=== PATIENT | male | born 1990 | race Caucasian/White ===

== ENCOUNTER 2016-10-25 16:03 | Emergency (ER) | payer OTHER ==
[~2016-10-25] VITALS: Ht 170.2 cm; Wt 61.2 kg
[2016-10-25 16:10] VITALS: BP 100/60
[2016-10-25] MEDS ORDERED: KETOROLAC TROMETHAMINE 60 MG/2 ML SYRINGE. IM ONE (16:30)
--- NOTE | 2016-10-25 16:51 | RAD ---
Lumbar spine radiographs History: Low back pain for one day after lifting 50 pound bag. Comparison: 04/05/2009. Findings: AP and lateral views of the lumbar spine, 3 images. 5 lumbar type vertebral bodies are present. There is mild levoconvex curvature of the lower thoracic and lumbar spine. No acute fracture or acute malalignment is identified. Right L1 transverse process demonstrates ununited apophysis versus old, ununited fracture, unchanged. Impression: No acute osseous traumatic injury identified.
--- NOTE | 2016-10-25 17:01 | PHYS DOC ---
Past Medical History Past Medical History: No Pertinent History Past Surgical History: Other Additional Past Surgical Histo: WISDOM TEETH Additional Information: 1 PPD SMOKER Alcohol Use: Occasionally Drug Use: Marijuana Adult General Chief Complaint Chief Complaint: LOWER BACK PAIN OR INJURY HPI HPI Patient is a 26 year old male who presents with low back pain after lifting a 50-pound container of flour today at work. The pain radiates to the right buttock. He denies weakness or numbness in the legs. He has not had incontinence of bowel or bladder or saddle anesthesia. He reports nausea without vomiting or abdominal pain. He denies urinary symptoms. He has had similar symptoms in the past, about 4 times a year, after bending or lifting activities. The pain usually resolves with heat and rest. The patient continued to work today and was unable to take any pain medication or apply heat. He states that the pain has grown gradually worse throughout the day. His PCP is Dr. Treadwell. Review of Systems Review of Systems Constitutional: Denies fever or chills. [] GI: Denies abdominal pain, vomiting. Reports nausea. : Denies dysuria, hematuria or urinary frequency. [] Musculoskeletal: Denies joint pain. Reports low back pain. Integument: Denies rash or skin lesions. [] Neurologic: Denies headache, focal weakness or sensory changes. Denies incontinence or saddle anesthesia. All systems reviewed and negative unless otherwise stated in the HPI. Current Medications Current Medications Current Medications Medications (Trade) Dose Ordered Sig/[facility] Start Time Stop Time Status Last Admin Dose Admin Ketorolac Tromethamine (Toradol Im) 60 mg 1X ONCE 10/25/16 16:30 10/25/16 16:31 DC Allergies Allergies Allergies Coded Allergies Type Severity Reaction Last Updated Verified No Known Drug Allergies 10/25/16 No Physical Exam Physical Exam Constitutional: Well developed, well nourished, no acute distress, non-toxic appearance. [] HENT: Normocephalic, atraumatic, oropharynx moist. [] Eyes: PERRLA, EOMI, conjunctiva normal, no discharge. [] Neck: Normal range of motion, no tenderness, supple, no stridor. [] Cardiovascular: Heart rate regular rhythm, no murmur. [] Lungs & Thorax: Bilateral breath sounds clear to auscultation without wheezes, rales, or rhonchi. [] Abdomen: Bowel sounds normal, soft, no tenderness, no masses, no pulsatile masses. [] Skin: Warm, dry, no erythema, no rash. [] Back: Lumbar midline and bilateral paraspinal tenderness, no CVA tenderness. [] Extremities: No tenderness, ROM intact, no edema. 2+ DP pulses bilaterally. Light touch sensation intact distally and equal bilaterally. Neurologic: Alert and oriented X 3, normal motor function, normal sensory function, no focal deficits noted. [] Psychologic: Affect normal, judgement normal, mood normal. [] Current Patient Data Vital Signs Vital Signs Date Time Temp Pulse Resp B/P Pulse Ox O2 Delivery O2 Flow Rate FiO2 10/25/16 16:10 98.4 76 18 96 Room Air 98.4 EKG EKG [] Radiology/Procedures Radiology/Procedures REASON: low back pain PROCEDURE: LUMBAR SPINE 2-3V Lumbar spine radiographs History: Low back pain for one day after lifting 50 pound bag. Comparison: 04/05/2009. Findings: AP and lateral views of the lumbar spine, 3 images. 5 lumbar type vertebral bodies are present. There is mild levoconvex curvature of the lower thoracic and lumbar spine. No acute fracture or acute malalignment is identified. Right L1 transverse process demonstrates ununited apophysis versus old, ununited fracture, unchanged. Impression: No acute osseous traumatic injury identified. Course & Med Decision Making Course & Med Decision Making Pertinent Labs and Imaging studies reviewed. (See chart for details) [] Dragon Disclaimer Dragon Disclaimer This electronic medical record was generated, in whole or in part, using a voice recognition dictation system. Departure Departure Impression: Primary Impression: Low back pain Disposition: 01 HOME, SELF-CARE Condition: STABLE Patient Instructions: Back Pain, Adult, [id number] Additional Instructions: Your xray does not show any acute changes. Please take the prescribed medications as directed. Do not drive or operate heavy machinery while taking these medications. Please apply heat, practice gentle stretching, light massage, and avoid bending or lifting. Please follow up with your primary care provider if your symptoms continue. Return to the emergency department if you have loss of bowel or bladder control , numbness between your legs, or other new or concerning symptoms. Scripts Tramadol Hcl (Ultram)50 Mg [id number] Mg PO Q6H PRN PAIN #20 TAB Prov:MIRI SNIDER 10/25/16 Methocarbamol (Robaxin)500 Mg [id number] Mg PO QID #20 TAB Prov:MIRI SNIDER 10/25/16 Problem Qualifiers Primary Impression: Low back pain Chronicity: acute Back pain laterality: bilateral Sciatica presence: with sciatica Sciatica laterality: sciatica of right side Qualified Code: M54.41 - Lumbago with sciatica, right side MIRI SNIDER Oct 25, 2016 17:01
[2016-10-25] MEDS ORDERED: METH-37 PO (17:06)
[2016-10-25] MEDS ORDERED: TRAM-29 PO (17:06)
== END 2016-10-25 17:28 | disposition home or self-care (01) ==
LOC: ER 16:03
DX: M54.5 Low back pain (principal); F17.200 Nicotine dependence, unspecified, uncomplicated; F12.10 Cannabis abuse, uncomplicated
CPT/HCPCS: 72100; 96372; 99284; J1885

== ENCOUNTER 2017-07-28 10:36 | Emergency (ER) | payer BC ==
[~2017-07-28 10:36] MED LIST: METH-37 PO; TRAM-48 PO
--- NOTE | 2017-07-28 12:09 | PHYS DOC ---
Past Medical History Past Medical History: No Pertinent History Past Surgical History: Other Additional Past Surgical Histo: WISDOM TEETH Alcohol Use: Occasionally Drug Use: Marijuana Adult General Chief Complaint Chief Complaint: ABDOMINAL PAIN HPI HPI Patient is a 27 year old male presents to the emergency department stating clock this morning he developed generalized abdominal pain and discomfort. He states that he started having nausea vomiting and diarrhea. He states that he has vomited twice and has had 2 diarrhea stools. He denies blood being in either. Patient states that this has happened approximately 2 weeks ago when which she was diaphoretic and passed out at the same time. Patient denies taking any medications for pain or discomfort. Patient states pain is more generalized on the left side of the abdomen. His any history of Crohn's disease , diverticulitis, diverticulosis. Review of Systems Review of Systems Constitutional: Denies fever or chills [] Eyes: Denies change in visual acuity, redness, or eye pain [] HENT: Denies nasal congestion or sore throat [] Respiratory: Denies cough or shortness of breath [] Cardiovascular: No additional information not addressed in HPI [] GI: abdominal pain, nausea, vomiting, and diarrhea : Denies dysuria or hematuria [] Musculoskeletal: Denies back pain or joint pain [] Integument: Denies rash or skin lesions [] Neurologic: Denies headache, focal weakness or sensory changes [] Endocrine: Denies polyuria or polydipsia [] Current Medications Current Medications Current Medications Medications (Trade) Dose Ordered Sig/[facility] Start Time Stop Time Status Last Admin Dose Admin Fentanyl Citrate (Fentanyl 2ml Vial) 25 mcg PRN Q15MIN PRN 07/28/17 12:15 07/29/17 12:14 07/28/17 12:24 25 MCG Iohexol (Omnipaque 240 Mg/ml) 50 ml 1X ONCE 07/28/17 12:15 07/28/17 12:16 DC 07/28/17 12:15 50 ML Iohexol (Omnipaque 300 Mg/ml) 75 ml 1X ONCE 07/28/17 12:15 07/28/17 12:16 DC 07/28/17 13:17 75 ML Ondansetron HCl (Zofran) 4 mg 1X ONCE 07/28/17 12:15 07/28/17 12:16 DC 07/28/17 12:23 4 MG Sodium Chloride 1,000 ml @ 1,000 mls/hr 1X ONCE 07/28/17 12:15 07/28/17 13:14 DC 07/28/17 12:15 1,000 MLS/HR Allergies Allergies Allergies Coded Allergies Type Severity Reaction Last Updated Verified Penicillins Allergy Unknown 07/28/17 Yes Physical Exam Physical Exam Constitutional: Well developed, well nourished, no acute distress, non-toxic appearance. [] HENT: Normocephalic, atraumatic, bilateral external ears normal, oropharynx moist, no oral exudates, nose normal. [] Eyes: PERRLA, EOMI, conjunctiva normal, no discharge. [] Neck: Normal range of motion, no tenderness, supple, no stridor. [] Cardiovascular:Heart rate regular rhythm, no murmur [] Lungs & Thorax: Bilateral breath sounds clear to auscultation [] Abdomen: Bowel sounds hypoactive, soft, generalized tenderness, no masses, no pulsatile masses. [] Skin: Warm, dry, no erythema, no rash. [] Back: No tenderness Extremities: No tenderness, no cyanosis, no clubbing, ROM intact, no edema. [] Neurologic: Alert and oriented X 3, normal motor function, normal sensory function, no focal deficits noted. [] Psychologic: Affect normal, judgement normal, mood normal. [] Current Patient Data Vital Signs Vital Signs Date Time Temp Pulse Resp B/P (MAP) Pulse Ox O2 Delivery O2 Flow Rate FiO2 07/28/17 12:11 52 98/67 (77) 100 Room Air 07/28/17 11:00 97.0 18 97.0 Lab Values Laboratory Tests Test 07/28/17 11:10 07/28/17 13:10 White Blood Count 5.6 x10^3/uL (4.0-11.0) Red Blood Count 5.13 x10^6/uL (4.30-5.70) Hemoglobin 16.4 g/dL (13.0-17.5) Hematocrit 48.0 % (39.0-53.0) Mean Corpuscular Volume 93 fL (79-100) Mean Corpuscular Hemoglobin 32 pg (25-35) Mean Corpuscular Hemoglobin Concent 34 g/dL (31-37) Red Cell Distribution Width 13.2 % (11.5-14.5) Platelet Count 176 x10^3/uL (140-400) Neutrophils (%) (Auto) 64 % (31-73) Lymphocytes (%) (Auto) 21 % (24-48) L Monocytes (%) (Auto) 12 % (0-9) H Eosinophils (%) (Auto) 3 % (0-3) Basophils (%) (Auto) 1 % (0-3) Neutrophils # (Auto) 3.6 x10^3uL (1.8-7.7) Lymphocytes # (Auto) 1.2 x10^3/uL (1.0-4.8) Monocytes # (Auto) 0.6 x10^3/uL (0.0-1.1) Eosinophils # (Auto) 0.2 x10^3/uL (0.0-0.7) Basophils # (Auto) 0.0 x10^3/uL (0.0-0.2) Sodium Level 141 mmol/L (136-145) Potassium Level 4.4 mmol/L (3.5-5.1) Chloride Level 105 mmol/L (98-107) Carbon Dioxide Level 30 mmol/L (21-32) Anion Gap 6 (6-14) Blood Urea Nitrogen 11 mg/dL (8-26) Creatinine 1.0 mg/dL (0.7-1.3) Estimated GFR (Cockcroft-Gault) 91.0 BUN/Creatinine Ratio 11 (6-20) Glucose Level 97 mg/dL (70-99) Calcium Level 9.0 mg/dL (8.5-10.1) Total Bilirubin 0.3 mg/dL (0.2-1.0) Aspartate Amino Transferase (AST) 15 U/L (15-37) Alanine Aminotransferase (ALT) 19 U/L (16-63) Alkaline Phosphatase 68 U/L (46-116) Total Protein 7.0 g/dL (6.4-8.2) Albumin 4.0 g/dL (3.4-5.0) Albumin/Globulin Ratio 1.3 (1.0-1.7) Urine Color Yellow Urine Clarity Clear Urine pH 5.5 Urine Specific [place] 1.010 Urine Protein Negative mg/dL (NEG-TRACE) Urine Glucose (UA) Negative mg/dL (NEG) Urine Ketones (Stick) Negative mg/dL (NEG) Urine Blood Negative (NEG) Urine Nitrite Negative (NEG) Urine Bilirubin Negative (NEG) Urine Urobilinogen Dipstick 0.2 mg/dL (0.2 mg/dL) Urine Leukocyte Esterase Negative (NEG) Urine RBC 0 /HPF (0-2) Urine WBC 0 /HPF (0-4) Urine Squamous Epithelial Cells Occ /LPF Urine Bacteria 0 /HPF (0-FEW) Urine Mucus Slight /LPF Urine Opiates Screen Neg (NEG) Urine Methadone Screen Neg (NEG) Urine Barbiturates Neg (NEG) Urine Phencyclidine Screen Neg (NEG) Urine Amphetamine/Methamphetamine Neg (NEG) Urine Benzodiazepines Screen Neg (NEG) Urine Cocaine Screen Neg (NEG) Urine Cannabinoids Screen Pos (NEG) Urine Ethyl Alcohol Neg (NEG) Laboratory Tests 07/28/17 11:10 Laboratory Tests 07/28/17 11:10 EKG EKG [] Radiology/Procedures Radiology/Procedures [][facility] [address] [place] [address] IMAGING REPORT Signed PATIENT: MICHELLE KEITH ACCOUNT: [id number] : 1990 LOCATION: ER AGE: 27 SEX: M EXAM STATUS: REG ER ORD. PHYSICIAN: MARIO ANSARI APRN REASON: abdominal pain with vomiting and diarrhea PROCEDURE: CT ABD PELV W/ORAL&IV CONTRAST Indication: Abdominal pain, vomiting and diarrhea. Technique: Axial images and coronal and sagittal reformatted images are provided. Oral contrast and 75 mL of intravenous Omnipaque 300 was administered without complication. No comparison is available. One or more of the following individualized dose reduction techniques were utilized for this examination: 1. Automated exposure control 2. Adjustment of the mA and/or kV according to patient size 3. Use of iterative reconstruction technique Findings: There is dependent atelectasis. There is no pleural effusion. The heart is not enlarged. Liver, gallbladder, spleen, pancreas, and adrenals are unremarkable. Kidneys are symmetrically perfused. Aorta is normal caliber. There is no small bowel obstruction or mural thickening. Small amount of contrast in the esophagus suggests reflux. Contrast does not reach the colon. The appendix probably is visualized and air-filled, normal in appearance. There is apparent mural thickening in the descending colon, mild, without any evidence of free air or abscess. Bladder is only mildly distended and is grossly unremarkable. Calcified phleboliths are unremarkable. Bony structures are intact. Impression: 1. Mural thickening suspected in the descending colon, likely a mild colitis. DICTATED and SIGNED BY: GUERO JOHNSON MD DATE: 07/28/17 1333 CC: MARIO ANSARI APRN; GEORGES MESSER MD; NON,STAFF ~ [facility] [address] [place] [address] IMAGING REPORT Signed PATIENT: MICHELLE KEITH ACCOUNT: [id number] : 1990 LOCATION: ER AGE: 27 SEX: M EXAM STATUS: REG ER ORD. PHYSICIAN: MARIO ANSARI APRN REASON: abdominal pain with nausea and vomiting,pt states pain worse lt. side. PROCEDURE: ACUTE ABDOMEN SERIES Indication: Abdominal pain beginning this morning. Nausea and vomiting. Technique: Abdominal series with PA chest radiograph contains 3 images. Comparison chest radiograph is from December 14, 2014. Findings: The lungs are clear. There is no pleural effusion. The heart is not enlarged. Leads overlie the patient. There is no free air. There is no dilated bowel loop or air-fluid level. There is gas in the colon. There are calcified phleboliths in the pelvis. Impression: 1. Nonobstructive bowel gas pattern. 2. No acute thoracic findings. DICTATED and SIGNED BY: GUERO JOHNSON MD DATE: 07/28/17 1216 CC: MARIO ANSARI APRN; GEORGES MESSER MD; NON,STAFF ~ Course & Med Decision Making Course & Med Decision Making Pertinent Labs and Imaging studies reviewed. (See chart for details) Patient's CBC, CMP are within normal limits. CT scan identified colitis. Patient will be discharged home with recommendations for clear liquid diet for the next 24 hours. He'll be provided with a prescription for Zofran and Bentyl for pain and discomfort. Recommended following up with primary care physician in next 3-5 days. Signs and symptoms to return back to emergency department as been provided. All questions and concerns been answered at patient's bedside. Patient agrees with discharge instructions, treatment regimens and follow-up recommendations. [] Dragon Disclaimer Dragon Disclaimer This electronic medical record was generated, in whole or in part, using a voice recognition dictation system. Departure Departure Impression: Primary Impression: Colitis Disposition: 01 HOME, SELF-CARE Condition: STABLE Referrals: GEORGES MESSER MD (PCP) Patient Instructions: Clear Liquid Diet, [id number], Colitis Additional Instructions: Activity as tolerated. Clear liquid diet for the next 24 hours. Zofran for nausea vomiting. Bentyl for abdominal pain and discomfort. Follow-up to primary care physician in the next 3-5 days. Return back to emergency prior signs symptoms of become worse. Scripts Dicyclomine Hcl (BENTYL) 10 Mg Capsule 1 CAP PO TID Y for PAIN, #30 CAP Prov: MARIO ANSARI APRN 07/28/17 Ondansetron (ZOFRAN ODT) 4 Mg Tab.rapdis 1 TAB SL Q8HRS, #10 TAB Prov: MARIO ANSARI APRN 07/28/17 MARIO ANSARI APRN Jul 28, 2017 12:09
[2017-07-28 12:11] VITALS: BP 98/67
[2017-07-28] MEDS ORDERED: IOHEXOL 240 MG/ML 50ML VIAL. PO ONE (12:15)
[2017-07-28] MEDS ORDERED: IOHEXOL 300 MG/ML 75 ML VIAL IV ONE (12:15)
[2017-07-28] MEDS ORDERED: fentaNYL PF VIAL 100 MCG/2 ML VIAL IV PRN (12:15)
[2017-07-28] MEDS ORDERED: IV NORMAL SALINE 1000ML BAG 1,000 ML IV ONE (12:15)
[2017-07-28] MEDS ORDERED: ONDANSETRON PF 4 MG/2 ML VIAL. IV ONE (12:15)
[2017-07-28 12:16] LABS: BASO % 1 % (0-3); EOS % 3 % (0-3); HEMOGLOBIN 16.4 g/dL (13.0-17.5); LYMPH # 1.2 x10^3/uL (1.0-4.8); LYMPH % 21 % (24-48); MEAN CORPUSCULAR HEMOGLOBIN 32 pg (25-35); MEAN CORPUSCULAR HGB CONC 34 g/dL (31-37); MEAN CORPUSCULAR VOLUME 93 fL (79-100); MONO % 12 % (0-9); NEUT % 64 % (31-73); PLATELET COUNT 176 x10^3/uL (140-400); RED BLOOD COUNT 5.13 x10^6/uL (4.30-5.70); RED CELL DISTRIBUTION WIDTH 13.2 % (11.5-14.5); WHITE BLOOD COUNT 5.6 x10^3/uL (4.0-11.0)
--- NOTE | 2017-07-28 12:20 | RAD ---
Indication: Abdominal pain beginning this morning. Nausea and vomiting. Technique: Abdominal series with PA chest radiograph contains 3 images. Comparison chest radiograph is from December 14, 2014. Findings: The lungs are clear. There is no pleural effusion. The heart is not enlarged. Leads overlie the patient. There is no free air. There is no dilated bowel loop or air-fluid level. There is gas in the colon. There are calcified phleboliths in the pelvis. Impression: 1. Nonobstructive bowel gas pattern. 2. No acute thoracic findings.
[2017-07-28 12:30] LABS: POTASSIUM 4.4 mmol/L (3.5-5.1)
[2017-07-28 12:36] LABS: ALBUMIN/GLOBULIN RATIO 1.3 (1.0-1.7); TOTAL BILIRUBIN 0.3 mg/dL (0.2-1.0)
[2017-07-28 13:27] LABS: BILIRUBIN,URINE NEGATIVE (NEG); GLUCOSE,URINE NEGATIVE (NEG); NITRITE,URINE NEGATIVE (NEG); PH,URINE 5.5; PROTEIN,URINE NEGATIVE (NEG-TRACE); UROBILINOGEN,URINE 0.2 mg/dL (0.2 mg/dL)
[2017-07-28 13:28] LABS: BARBITURATES NEG (NEG); BENZODIAZEPINES NEG (NEG); CANNABINOIDS POS (NEG); COCAINE NEG (NEG); METHADONE NEG (NEG); OPIATES NEG (NEG); PHENCYCLIDINE NEG (NEG)
--- NOTE | 2017-07-28 13:48 | RAD ---
Indication: Abdominal pain, vomiting and diarrhea. Technique: Axial images and coronal and sagittal reformatted images are provided. Oral contrast and 75 mL of intravenous Omnipaque 300 was administered without complication. No comparison is available. One or more of the following individualized dose reduction techniques were utilized for this examination: 1. Automated exposure control 2. Adjustment of the mA and/or kV according to patient size 3. Use of iterative reconstruction technique Findings: There is dependent atelectasis. There is no pleural effusion. The heart is not enlarged. Liver, gallbladder, spleen, pancreas, and adrenals are unremarkable. Kidneys are symmetrically perfused. Aorta is normal caliber. There is no small bowel obstruction or mural thickening. Small amount of contrast in the esophagus suggests reflux. Contrast does not reach the colon. The appendix probably is visualized and air-filled, normal in appearance. There is apparent mural thickening in the descending colon, mild, without any evidence of free air or abscess. Bladder is only mildly distended and is grossly unremarkable. Calcified phleboliths are unremarkable. Bony structures are intact. Impression: 1. Mural thickening suspected in the descending colon, likely a mild colitis.
[2017-07-28 13:52] LABS: BACTERIA,URINE 0 /HPF (0-FEW); RBC,URINE 0 /HPF (0-2); WBC,URINE 0 /HPF (0-4)
[2017-07-28 13:53] LABS: SQUAMOUS EPITHELIAL CELL,UR OCC /LPF
[2017-07-28] MEDS ORDERED: ONDA4TAB10 SL (14:04)
[2017-07-28] MEDS ORDERED: DICY10CA53 PO (14:04)
== END 2017-07-28 14:26 | disposition home or self-care (01) ==
LOC: ER 10:36
DX: K52.9 Noninfective gastroenteritis and colitis, unspecified (principal); Z88.0 Allergy status to penicillin
CPT/HCPCS: 36415; 74022; 74177; 80053; 80307; 81001; 85025; 96361; 96374; 96375; 99285; J2405; J3010; J7030; Q9966; Q9967; G0479